=== PATIENT | male | born 1960 | race Caucasian/White ===

== ENCOUNTER 2016-07-08 10:17 | Day surgery (SDC) | payer OTHER ==
[~2016-07-08] VITALS: Ht 170.2 cm; Wt 95.0 kg
[2016-07-08] MEDS ORDERED: LACTATED RINGERS 1,000 ML IV SCH (10:53)
[2016-07-08 10:54] VITALS: BP 125/80
[2016-07-08] MEDS ORDERED: RABE20TA5 PO (10:54)
[2016-07-08] MEDS ORDERED: FENTANYL PF 250 MCG/5ML ONE ×2 (11:03→11:20)
[2016-07-08] MEDS ORDERED: MIDAZOLAM 1 MG/ML, 2ML ONE ×2 (11:03→11:20)
[2016-07-08] MEDS ORDERED: BUPIVACAINE/PF-EPI 0.25% 1:200K ONE (11:21)
[2016-07-08] MEDS ORDERED: ROCURONIUM 10 MG/ML ONE (11:38)
[2016-07-08] MEDS ORDERED: PROPOFOL 10 MG/ML, 20ML ONE (11:38)
[2016-07-08] MEDS ORDERED: ONDANSETRON 2MG/ML, 2ML ONE (11:38)
[2016-07-08] MEDS ORDERED: KETAMINE 100 MG/ML, 5ML ONE (11:38)
[2016-07-08] MEDS ORDERED: METOCLOPRAMIDE 5 MG/ML, 2ML ONE (11:38)
[2016-07-08] MEDS ORDERED: KETOROLAC 30 MG/1 ML ONE (11:38)
[2016-07-08] MEDS ORDERED: CEFAZOLIN 1,000 MG ONE (11:38)
[2016-07-08] MEDS ORDERED: DEXAMETHASONE 4 MG/ML, 1ML ONE (11:38)
[2016-07-08] MEDS ORDERED: MEPERIDINE/PF 25MG/0.5ML IVPush PRN (12:30)
[2016-07-08] MEDS ORDERED: PROMETHAZINE 25 MG/ML, 1ML IV PRN (12:30)
[2016-07-08] MEDS ORDERED: HYDROmorphone 1 MG/ML, 1ML IV PRN (12:30)
[2016-07-08] MEDS ORDERED: LABETALOL 5MG/ML, 20ML IV PRN (12:30)
[2016-07-08] MEDS ORDERED: ONDANSETRON 2MG/ML, 2ML IVPush PRN (12:30)
[2016-07-08] MEDS ORDERED: hydrALAzine 20 MG/ML, 1ML IV PRN (12:30)
[2016-07-08] MEDS ORDERED: ACETAMINOPHEN 325 MG TABLET PO PRN (12:30)
[2016-07-08] MEDS ORDERED: OXYcodone 5 MG/5 ML ORAL.SOL UDC PO PRN (12:30)
[2016-07-08] MEDS ORDERED: OXYcodone 5 MG/5 ML ORAL.SOL UDC ONE (12:45)
[2016-07-08] MEDS ORDERED: ACETAMINOPHEN 650 MG/20.3 ML UDC ONE (12:45)
[2016-07-08] MEDS ORDERED: ACETAMINOPHEN 325 MG TABLET ONE (12:46)
[2016-07-08] MEDS ORDERED: FENTANYL PF 100 MCG/2ML ONE (12:52)
[2016-07-08] MEDS: FENTANYL PF 100 MCG/2ML IV PRN ×2 (12:54→13:11)
== END 2016-07-08 16:05 | disposition home or self-care (01) ==
LOC: OUT 10:17
PROVIDERS: ATTEND Colon & Rectal Surgery
DX: K42.9 Umbilical hernia without obstruction or gangrene (principal); K21.9 Gastro-esophageal reflux disease without esophagitis; Z98.52 Vasectomy status; Z82.49 Family history of ischemic heart disease and other diseases of the circulatory system; Z72.89 Other problems related to lifestyle; E66.9 Obesity, unspecified; Z68.32 Body mass index [BMI] 32.0-32.9, adult
CPT/HCPCS: 49585; C1781; J0690; J1100; J1885; J2250; J2405; J2704; J2765; J3010; J7120